=== PATIENT | female | born 1995 | race Caucasian/White ===

== ENCOUNTER 2017-03-15 09:43 | Emergency (ER) | payer OTHER ==
[2017-03-15 10:05] VITALS: RESP 16; TEMP 98.2
[2017-03-15] MEDS ORDERED: NS 1,000 ML IV ONE ×2 (10:09→10:43)
[2017-03-15 10:30] LABS: COLOR YELLOW; LEUKOCYTE ESTERASE,URINE NEGATIVE (NEGATIVE); NITRITE,URINE NEGATIVE (NEGATIVE)
--- NOTE | 2017-03-15 10:35 | UCPHY ---
H & P Patient Type: New Chief Complaint Nursing Narrative: Nausea/diarrhea since Sunday 03/11. Now vomiting and feels dehydrated since yesterday 03/14. Also with bilateral flank pain. denies urinary s/s. Time Seen by Provider: 03/15/17 10:34 HPI/ROS: CHIEF COMPLAINT: Diarrhea, abdominal pain. HISTORY OF PRESENT ILLNESS: The patient is a 21-year-old female who presents with diarrhea for 5 days. She has had up to 10 bouts of diarrhea per day. She admits associated abdominal pain, back pain, and vomiting that began yesterday. She denies bloody stool. She last vomited last night and had an episode of diarrhea this morning. She denies fever, cough, shortness of breath, urinary symptoms, or other complaints. REVIEW OF SYSTEMS: A ten point review of systems was performed and is negative with the exception of the items mentioned in the HPI. Exam Limitations: No limitations - Personal History LMP (Females 10-55): 15-21 Days Ago Current Tetanus Diphtheria and Acellular Pertussis (TDAP): Yes - Medical/Surgical History PMH: Anxiety. 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 - Physical Exam Exam: General Appearance: Alert. Vital signs reviewed. Eyes: Pupils equal and round, no conjunctival injection, no discharge. Anicteric. ENT, Mouth: Mucous membranes are dry, no oropharyngeal erythema or edema. Neck: mild anterior ervical lymphadenopathy, neck is supple. Respiratory: Lungs are clear to auscultation; no wheezes, rales, or rhonchi. Cardiovascular: Regular rate and rhythm; no murmur, rub, or gallop. Gastrointestinal: Abdomen is soft, no masses or organomegaly, bowel sounds normal. Mid-epigastric and RUQ tenderness. Skin: Warm and dry, no rashes on exposed skin, normal color. Back: Nontender to palpation over the thoracolumbar spine. No CVAT. Extremities: No lower extremity edema, no calf tenderness or swelling. Neurological: Alert and oriented. Moving all four extremities easily and equally. Psychiatric: Normal affect. Constitutional: Initial Vital Signs Temperature (C) 36.8 C 03/15/17 10:03 Heart Rate 86 03/15/17 10:03 Respiratory Rate 16 03/15/17 10:03 Blood Pressure 111/76 03/15/17 10:03 O2 Sat (%) 96 03/15/17 10:03 O2 Delivery Mode Room Air Allergies/Adverse Reactions: No Known Allergies Allergy (Unverified 03/15/17 10:02) Home Medications: Medication Instructions Recorded Anxiety Med 03/15/17 Control Pill 03/15/17 Rhinocort Allergy 03/15/17 Medical Decision Making ED Course/Re-evaluation: 21-year-old otherwise healthy female presents with 5 days of diarrhea. She does have associated abdominal pain and vomiting. On exam she is tender in the epigastrium and RUQ. Mucous membranes are dry and she is clearly dehydrated. She reports no blood in her stool. An IV was established and labs ordered. I offered pain medication but she declined. She will be rehydrated with IV fluids. I reviewed the patient's laboratory studies. Blood and urine negative for acute abnormality. I do not believe this patient has a UTI--UA shows bacteria, but also epithelial cells, suggesting contamination. Culture sent. She had RUQ tenderness--LFTS and lipase are normal and I do not suspect cholecystitis with nl WBC and no fever. Abdominal exam with minimal to no tenderness at discharge. She is not . 1150: Reassessed patient. Discussed results of workup. She is feeling better and wants to go home. Continued symptomatic care discussed. She did not produce diarrheal stool while in UC. This is likely a viral diarrheal illness, with bacterial etiology also in differential. - Data Points Laboratory Results: Laboratory Results 03/15/17 10:10 03/15/17 10:10 Microbiology Results: MICROBIOLOGY 03/15/17 10:48 Urine,Clean Catch Urine Culture - Final Three [place] Types Medications Given: Discontinued Medications Sodium Chloride (Ns) 1,000 mls @ 0 mls/hr IV ONCE ONE PRN Reason: Wide Open Stop: 03/15/17 10:10 Last Admin: 03/15/17 10:22 Dose: 1,000 mls Sodium Chloride (Ns) 1,000 mls @ 0 mls/hr IV ONCE ONE PRN Reason: Wide Open Stop: 03/15/17 10:44 Last Admin: 03/15/17 10:50 Dose: 1,000 mls Ondansetron HCl (Zofran) 4 mg IVP EDNOW ONE Stop: 03/15/17 10:44 Last Admin: 03/15/17 10:50 Dose: 4 mg Ondansetron HCl (Zofran Odt 4 Mg Prepack#2) 1 btl TAKEHOME EDNOW ONE Stop: 03/15/17 11:53 Last Admin: 03/15/17 12:00 Dose: 1 btl Departure - Departure Disposition: Home, Routine, Self-Care Clinical Impression: Gastroenteritis Condition: Good Instructions: Hydrocodone/Acetaminophen (By mouth), Ondansetron (By mouth), Gastroenteritis (ED), Acute Diarrhea (ED) Additional Instructions: Drink plenty of fluids and be sure to get rest. Try any of the [id number] anti-diarrheal agents. Use the zofran, one wafer under your tongue, for nausea. Follow up with your primary care provider this week for symptoms that are not improving. Return for any serious worsening of condition. Referrals: Destiny Henderson MD [Primary Care Provider] - As per Instructions Stand Alone Forms: Work Excuse - PQRS PQRS Measurement: Does not apply. Report Scribed for: Anu Will Report Scribed by: Moe Perdomo Date of Report: 03/15/17 Time of Report: 10:41 Physician Review and Approval Statement: 03/15/17 10:35 Portions of this note were transcribed by the medical case manager. I, Dr. Anu Will, personally performed the history, physical exam, and medical decision- making; and confirmed the accuracy of the information in the transcribed note.
[2017-03-15] MEDS ORDERED: ONDANSETRON 4 MG/2 ML VIAL IVP ONE (10:43)
[2017-03-15 10:47] LABS: BACTERIA 2+ /hpf (NONE SEEN); MUCUS 3+ /lpf (NONE-1+); RBC,URINE 0-1 /hpf (0-3)
[2017-03-15 10:50] LABS: % IMMATURE GRANULYOCYTES 0.2 % (0.0-1.1); ABSOLUTE IMMATURE GRANULOCYTES 0.01 10^3/uL (0.00-0.10); ADD DIFF? NO; ADD MORPH? NO; ADD SCAN? NO; ATYPICAL LYMPHOCYTE FLAG 10 (0-99); FRAGMENT RBC FLAG 0 (0-99); HEMATOCRIT 43.8 % (38.0-47.0); HEMOGLOBIN 15.4 g/dL (12.6-16.3); LEFT SHIFT FLG 0 (0-99); LIPEMIA HEMOLYSIS FLAG 90 (0-99); MEAN CELL HEMOGLOBIN 29.7 pg (27.9-34.1); MEAN CELL HEMOGLOBIN CONCENTR. 35.2 g/dL (32.4-36.7); MEAN CELL VOLUME 84.6 fL (81.5-99.8); MEAN PLATELET VOLUME 9.7 fL (8.7-11.7); PLATELET CLUMPS FLAG 0 (0-99); PLATELET COUNT 290 10^3/uL (150-400); RED BLOOD CELL COUNT 5.18 10^6/uL (4.18-5.33); RED CELL DISTRIBUTION WIDTH 12.5 % (11.5-15.2)
[2017-03-15 10:58] LABS: ALANINE AMINOTRANSFERASE 30 IU/L (9-52); ALBUMIN 3.8 g/dL (3.5-5.0); ALKALINE PHOSPHATASE 70 IU/L (38-126); ANION GAP 14 mEq/L (8-16); ASPARTATE AMINOTRANSFERASE 23 IU/L (14-46); BILIRUBIN,TOTAL 0.7 mg/dL (0.1-1.4); BILIRUBIN-CONJUGATED 0.2 mg/dL (0.0-0.5); BILIRUBIN-UNCONJUGATED 0.5 mg/dL (0.0-1.1); CALCIUM 8.8 mg/dL (8.5-10.4); CARBON DIOXIDE 19 mEq/l (22-31); CHLORIDE 103 mEq/L (97-110); CREATININE 0.9 mg/dL (0.6-1.0); GLOMERULAR FILTRATION RATE > 60; GLUCOSE 89 mg/dL (70-100); POTASSIUM 3.9 mEq/L (3.5-5.2); SODIUM 136 mEq/L (134-144); TOTAL PROTEIN 6.7 g/dL (6.3-8.2)
[2017-03-15] MEDS ORDERED: ONDANSETRON 4MG PREPACK#2 BTL TAKEHOME ONE (11:52)
[2017-03-15 11:54] VITALS: BP 127/65; PULSE 71; O2SAT 96
== END 2017-03-15 12:00 | disposition home or self-care (01) ==
LOC: CED 09:43
DX: K52.9 Noninfective gastroenteritis and colitis, unspecified (principal)
CPT/HCPCS: 80048-PO; 80076-PO; 81003-PO; 81015-PO; 83690-PO; 84703-PO; 85025-PO; 96361-PO; 96374-PO; 99204-PO; G0463-PO; J2405